=== PATIENT | female | born 1945 | race Caucasian/White ===

== ENCOUNTER → 2020-03-05 | Outpatient (CLI) | payer MEDICARE ==
[~2020-03-05] MED LIST: ASCO500 PO; ATOR10 PO; Aldactazide 251 EACH PO; Alprazolam0.5 MG PO; Aspir-Low81 MG PO; CHOL10002 PO; Calcium Glucon500 MG PO; ENOX40I SC; FIORICET 50-301 EACH PO; MULVITMIND; Norco 10-325 T1 EACH PO; OXYACE5T PO; OXYC5 PO; RANI150 PO; SPIHYD PO; Synthroid88 MCG PO; ZOLP10 PO
== END | disposition home or self-care (01) ==
LOC: LAB 14:51 → LAB SHORT 14:51
DX: L72.0 Epidermal cyst (principal)
CPT/HCPCS: 88304; 88305